=== PATIENT | male | born 1985 | race Caucasian/White ===

== ENCOUNTER → 2024-03-27 | Outpatient (REF) | payer OTHER | LOC: M LAB REF 21:33 | PROVIDERS: ATTEND Physician Assistant | DX: R10.84 Generalized abdominal pain (principal); R19.7 Diarrhea, unspecified ==

== ENCOUNTER → 2024-03-27 | Outpatient (CLI) | payer OTHER | LOC: M WUC 14:14 | PROVIDERS: ATTEND Physician Assistant | DX: R10.84 Generalized abdominal pain (principal); R19.7 Diarrhea, unspecified ==